=== PATIENT | female | born 1980 | race Caucasian/White ===

== ENCOUNTER 2024-07-15 11:06 | Outpatient (CLI) | payer SELFPAY ==
--- NOTE | ~2024-07-15 | US_ITS ---
EXAMINATION: US pelvic complete w TV DATE: 07/15/2024 11:59 INDICATION: N93.9 - Abnormal uterine and vaginal bleeding, unspecified TECHNIQUE: Multiple transabdominal and endovaginal sonographic images of the pelvis were obtained. COMPARISON: None. FINDINGS: Uterus: 11.7 x 6.4 x 7.2 cm. Nabothian cyst is seen in this cysts. Endometrial complex measures 12 mm . Right Ovary: 3.4 x 3.6 x 3.5 cm. Vascular flow is present. 3.0 cm simple right ovarian cyst. Left Ovary: 1.7 x 2.4 x 1.8 cm. Vascular flow is present. There is no free fluid in the pelvis. IMPRESSION: Normal pelvic sonogram findings. Reviewed, dictated and finalized at location K.
== END 2024-07-15 11:07 | disposition home or self-care (01) ==
LOC: MICIMG 11:09
PROVIDERS: PCP Student in an Organized Health Care Education/Training Program; Visit Provider Student in an Organized Health Care Education/Training Program
DX: N93.9 Abnormal uterine and vaginal bleeding, unspecified (principal)
CPT/HCPCS: 76830; 76856